=== PATIENT | female | born 1950 | race Caucasian/White ===

== ENCOUNTER → 2017-04-28 | Outpatient (CLI) | payer OTHER, BC ==
[~2017-04-28] VITALS: Ht 137.2 cm; Wt 72.6 kg
[~2017-04-28] MED LIST: ADVAIR 250/501 DISK IH; AMLODIPINE BESYL5 MG PO; ASPIRIN EC325 MG PO; ATIVAN1 MG PO; Advair 250/50 Diskus IH; BUSPAR10 MG PO; BUSPAR15 MG PO; CARAFATE100 MG/ML PO; COLACE100 MG PO; CYCLOBENZAPRINE10 MG PO; Desyrel PO; ENDOCET 5-3251 EACH PO; Elavil PO; FLEXERIL10 MG PO; FLUOXETINE HCL40 MG PO; FUROSEMIDE20 MG PO; Flexeril PO; GUMMI BEAR MUL1 EACH PO; LIDODERM 5% P1 PATCH TD; LO-DOSE ASPIRIN81 M1 PO; LORAZEPAM0.5 MG PO; Lasix PO; MELATONIN3 MG PO; MIRTAZAPINE15 MG PO; MULTIVITAMIN1 EAC2 PO; ONDANSETRON HCL4 MG PO; OXYCONTIN20 MG PO; OxyCONTIN PO; PERCOCET 7.51 TABLET PO; PROMETHAZINE12.5 M1 PO; PROTONIX40 MG PO; PROZAC20 MG PO; REXULTI0.25 MG PO; SERTRALINE HCL50 MG PO; TRAMADOL HCL50 MG PO; TRAZODONE HCL50 MG PO; TYLENOL EXTRA500 MG PO; VOLTAREN 1% GE100 GM TP; Vicodin ES 7.5/750 PO; ZOFRAN4 MG PO; ZOFRAN8 MG PO; ZOLOFT100 MG PO; [UNRECOGNIZED DRUG - CODE] PO
== END | disposition home or self-care (01) ==
LOC: AMB 10:00
PROC: 0DJ08ZZ Inspection of Upper Intestinal Tract, Via Natural or Artificial Opening Endoscopic (ICD-10-PCS; principal; 2017-04-28)
DX: K44.9 Diaphragmatic hernia without obstruction or gangrene (principal); Z98.84 Bariatric surgery status; E66.01 Morbid (severe) obesity due to excess calories; Z68.39 Body mass index [BMI] 39.0-39.9, adult; K21.9 Gastro-esophageal reflux disease without esophagitis; I10 Essential (primary) hypertension; M81.0 Age-related osteoporosis without current pathological fracture; G47.30 Sleep apnea, unspecified; J45.909 Unspecified asthma, uncomplicated; M19.90 Unspecified osteoarthritis, unspecified site; Z88.5 Allergy status to narcotic agent; Z90.49 Acquired absence of other specified parts of digestive tract; Z96.659 Presence of unspecified artificial knee joint; Z82.49 Family history of ischemic heart disease and other diseases of the circulatory system; Z82.61 Family history of arthritis; Z83.3 Family history of diabetes mellitus; Z82.0 Family history of epilepsy and other diseases of the nervous system
CPT/HCPCS: J2250

== ENCOUNTER → 2017-06-26 | Outpatient (CLI) | payer OTHER, BC | END | disposition home or self-care (01) | LOC: NUC 09:00 | DX: T84.033A Mechanical loosening of internal left knee prosthetic joint, initial encounter (principal); T84.032A Mechanical loosening of internal right knee prosthetic joint, initial encounter; M22.92 Unspecified disorder of patella, left knee; M22.91 Unspecified disorder of patella, right knee; M41.85 Other forms of scoliosis, thoracolumbar region; Z96.653 Presence of artificial knee joint, bilateral; M25.562 Pain in left knee | CPT/HCPCS: 78315; A9503 ==